=== PATIENT | male | born 1965 | race Two or more races ===

== ENCOUNTER 2025-02-18 11:33 | Emergency (ER) | payer OTHER ==
[~2025-02-18] VITALS: Ht 172.7 cm; Wt 88.5 kg
[2025-02-18] MEDS ORDERED: LORAZEPAM 0.5 MG TABLET PO ONE (11:45)
[2025-02-18] MEDS ORDERED: ASPI81TA31 PO (11:49)
[2025-02-18] MEDS ORDERED: ACETAMINOPHEN 500 MG TABLET ONE (11:54)
[2025-02-18] MEDS ORDERED: LORAZEPAM 0.5 MG TABLET ONE (11:54)
[2025-02-18] MEDS: LORAZEPAM 0.5 MG TABLET PO ONE (11:57)
[2025-02-18] MEDS: ACETAMINOPHEN 500 MG TABLET PO ONE (11:58)
[2025-02-18 12:02] LABS: PLATELET COUNT (AUTO) 355 K/uL (152-348); RED BLOOD CELL COUNT(AUTO) 4.58 MIL/uL (4.06-5.63); RED CELL DISTRIBUTION WIDTH 14.4 % (12.1-16.2); WHITE BLOOD COUNT (AUTO) 6.9 K/uL (3.6-10.2)
[2025-02-18 12:10] LABS: CREATININE 0.8 mg/dL (0.6-1.3); SODIUM SERUM 142 mmol/L (136-145); UREA NITROGEN, BLOOD 7 mg/dL (7-18)
[2025-02-18 12:16] LABS: ASPARTATE AMINOTRANSFERASE 18 U/L (15-37); TOTAL PROTEIN, SERUM 7.7 g/dL (6.4-8.2)
[2025-02-18 13:35] VITALS: BP 104/75
[2025-02-18] MEDS ORDERED: IBUP-1955 PO (14:21)
[2025-02-18 14:42] VITALS: BP 105/75; O2SAT 98
== END 2025-02-18 14:43 | disposition home or self-care (01) ==
LOC: ER 11:33
DX: S00.93XA Contusion of unspecified part of head, initial encounter (principal); R07.9 Chest pain, unspecified; I25.10 Atherosclerotic heart disease of native coronary artery without angina pectoris; Z79.82 Long term (current) use of aspirin; Z95.5 Presence of coronary angioplasty implant and graft; Y04.0XXA Assault by unarmed brawl or fight, initial encounter; Y93.89 Activity, other specified; Y92.89 Other specified places as the place of occurrence of the external cause; Y99.9 Unspecified external cause status
CPT/HCPCS: 36415; 71045; 84484; 85025; 85730; A4606; A4663; A9150